=== PATIENT | female | born 1990 | race Caucasian/White ===

== ENCOUNTER → 2018-02-27 | Emergency (ER) | payer OTHER ==
[~2018-02-27] VITALS: Ht 170.2 cm; Wt 86.2 kg
== END | disposition home or self-care (01) ==
LOC: ER 08:49
DX: K52.9 Noninfective gastroenteritis and colitis, unspecified (principal)

== ENCOUNTER 2019-03-27 13:20 | Emergency (ER) | payer OTHER ==
[~2019-03-27] VITALS: Ht 172.7 cm; Wt 86.2 kg
== END 2019-03-27 17:29 | disposition home or self-care (01) ==
LOC: ER 13:20
DX: J06.9 Acute upper respiratory infection, unspecified (principal)

== ENCOUNTER 2020-01-04 19:31 | Emergency (ER) | payer OTHER ==
[~2020-01-04] VITALS: Ht 170.2 cm; Wt 86.2 kg
== END 2020-01-04 22:09 | disposition home or self-care (01) ==
LOC: ER 19:31
DX: N91.0 Primary amenorrhea (principal); R50.9 Fever, unspecified

== ENCOUNTER 2020-02-07 09:57 | Emergency (ER) | payer OTHER ==
[~2020-02-07] VITALS: Ht 170.2 cm; Wt 86.2 kg
[2020-02-07] MEDS ORDERED: ZITHROMAX500 MG PO (12:32)
== END 2020-02-07 12:52 | disposition home or self-care (01) ==
LOC: ER 09:57
DX: B33.8 Other specified viral diseases (principal); B96.0 Mycoplasma pneumoniae [M. pneumoniae] as the cause of diseases classified elsewhere

== ENCOUNTER 2021-10-16 16:12 | Emergency (ER) | payer OTHER ==
[~2021-10-16] VITALS: Ht 170.2 cm; Wt 86.2 kg
[~2021-10-16 16:12] MED LIST: ZITHROMAX500 MG PO
[2021-10-16] MEDS ORDERED: OMEPRAZOLE MAGN20 MG PO (19:50)
[2021-10-16] MEDS ORDERED: ZOFRAN8 MG PO (19:50)
== END 2021-10-16 20:24 | disposition home or self-care (01) ==
LOC: ER 16:12
DX: J06.9 Acute upper respiratory infection, unspecified (principal); J02.8 Acute pharyngitis due to other specified organisms; B34.9 Viral infection, unspecified; Z20.822 Contact with and (suspected) exposure to COVID-19

== ENCOUNTER 2022-03-21 18:26 | Emergency (ER) | payer OTHER ==
[~2022-03-21] VITALS: Ht 172.7 cm; Wt 85.7 kg
[~2022-03-21 18:26] MED LIST changes: +OMEPRAZOLE MAGN20 MG PO; +ZOFRAN8 MG PO
[2022-03-21] MEDS ORDERED: ALEVE (19:04)
[2022-03-21] MEDS ORDERED: TUSNEL DM LIQU473 ML PO (23:07)
[2022-03-21] MEDS ORDERED: MEDROLPACK PO (23:07)
[2022-03-21] MEDS ORDERED: ZITHROMAX500 MG PO (23:07)
== END 2022-03-21 23:14 | disposition home or self-care (01) ==
LOC: ER 18:26
DX: J06.9 Acute upper respiratory infection, unspecified (principal); J06.0 Acute laryngopharyngitis; Z72.0 Tobacco use; Z20.822 Contact with and (suspected) exposure to COVID-19; Z91.013 Allergy to seafood

== ENCOUNTER 2022-03-29 17:38 | Emergency (ER) | payer OTHER ==
[~2022-03-29] VITALS: Ht 172.7 cm; Wt 81.2 kg
[~2022-03-29 17:38] MED LIST changes: +ALEVE; +MEDROLPACK PO; +TUSNEL DM LIQU473 ML PO
== END 2022-03-29 22:31 | disposition home or self-care (01) ==
LOC: ER 17:38
DX: S93.402A Sprain of unspecified ligament of left ankle, initial encounter (principal); X58.XXXA Exposure to other specified factors, initial encounter; Y93.01 Activity, walking, marching and hiking; Y92.9 Unspecified place or not applicable; Y99.9 Unspecified external cause status; Z91.013 Allergy to seafood

== ENCOUNTER 2022-10-06 19:33 | Emergency (ER) | payer OTHER ==
[~2022-10-06] VITALS: Ht 170.2 cm; Wt 86.2 kg
== END 2022-10-06 22:49 | disposition home or self-care (01) ==
LOC: ER 19:33
DX: B34.9 Viral infection, unspecified (principal); Z20.822 Contact with and (suspected) exposure to COVID-19

== ENCOUNTER 2023-09-26 11:04 | Emergency (ER) | payer OTHER ==
[~2023-09-26] VITALS: Ht 172.7 cm; Wt 86.2 kg
[2023-09-26 15:27] LABS: HEMOGLOBIN 13.4 g/dL (12.0-15.00); MEAN CELL VOLUME 84.2 fL (80.00-100.00); MEAN CORPUSCULAR HEMOGLOBIN 28.8 pg (27.00-32.0); MEAN CORPUSCULAR HGB CONC 34.2 g/dl (32.0-36.0); PLATELET COUNT 300 K/uL (150-450); RED BLOOD COUNT 4.64 M/uL (4.00-6.00); RED CELL DISTRIBUTION WIDTH 14.9 % (11.5-14.5)
== END 2023-09-26 20:01 | disposition home or self-care (01) ==
LOC: ER 11:04
PROVIDERS: General Practice
DX: J06.9 Acute upper respiratory infection, unspecified (principal); Z20.822 Contact with and (suspected) exposure to COVID-19

== ENCOUNTER 2024-01-01 10:50 | Outpatient (CLI) | payer OTHER | END 2024-01-01 10:51 | disposition home or self-care (01) | LOC: PRENATAL 10:50 | PROVIDERS: ATTEND Obstetrics & Gynecology Maternal & Fetal Medicine | DX: O35.9XX0 Maternal care for (suspected) fetal abnormality and damage, unspecified, not applicable or unspecified (principal); O35.3XX0 Maternal care for (suspected) damage to fetus from viral disease in mother, not applicable or unspecified; O44.00 Complete placenta previa NOS or without hemorrhage, unspecified trimester; Z3A.19 19 weeks gestation of pregnancy ==